=== PATIENT | female | born 1980 | race Caucasian/White ===

== ENCOUNTER → 2022-02-19 | Outpatient (CLI) | payer BC, MEDICAID ==
--- NOTE | 2022-02-19 14:45 | RAD ---
DATE: 02/19/2022 EXAM: US BREAST RT HISTORY: 42-year-old woman with family history of maternal aunt diagnosis of breast cancer at the age of 39, presenting for right breast biopsy. COMPARISON: 02/10/2022 and 08/10/2021 FINDINGS: The patient presents for biopsy of an indistinct 3 mm hypoechoic mass at 9:00 5 cm the nipp le seen on ultrasound 02/10/2022. The outer right breast was imaged by the clearance cutter and by me and t here is no mass seen on today's exam. Therefore, no biopsy was performed. This was explained to the p atient and short interval three-month follow-up right breast mammogram and ultrasound was recommended . IMPRESSION: No mass seen at 9:00 5 cm from the nipple on today's exam to target for biopsy. Recommend follow-up right breast mammogram and ultrasound in 3 months. The patient is in agreement with the pl an. BI-RADS CATEGORY: 3 PROBABLY BENIGN FINDING(S)-SHORT INTERVAL FOLLOW-UP SUGGESTED RECOMMENDED FOLLOW-UP: 3M 3 MONTH FOLLOW-UP Electronically signed by: Noemy Schwartz MD (02/19/2022 2:43 PM) [id number]
== END ==
LOC: US 12:53
PROVIDERS: ATTEND Family Medicine
DX: R92.8 Other abnormal and inconclusive findings on diagnostic imaging of breast (principal)
CPT/HCPCS: 76641